=== PATIENT | male | born 1975 | race Caucasian/White ===

== ENCOUNTER 2021-05-03 01:12 | Inpatient (IN) ==
[2021-05-03 02:46] LABS: Bilirubin,Urine Negative (Negative); Blood,Urine Negative (Negative); Clarity,Urine Clear (Clear); Color,Urine Light-Yellow (Yellow); Glucose,Urine (UA) Normal (Normal); Ketones,Urine Negative (Negative); Leukocyte Esterase,Urine Negative (Negative); Nitrite,Urine Negative (Negative); PH,Urine 5.5 pH Units (5.0-8.0); Protein,Urine Negative (Neg-Trace); Specific Gravity,Urine 1.015 (1.010-1.025); Urobilinogen,Urine Normal (Normal)
[2021-05-03 02:49] LABS: Basophils % 0.4 %; Eosinophils # 0.1 K/mcL (0.0-0.6); Eosinophils % 0.8 %; Hematocrit 47.3 % (37.5-50.1); Hemoglobin 15.7 g/dL (12.9-16.9); Immature Granulocytes % 0.7 % (0-4); Lymphocytes # 2.9 K/mcL (0.6-4.6); Lymphocytes % 28.4 %; Mean Corpuscular HGB Conc 33.2 g/dL (31.6-35.5); Mean Corpuscular Hemoglobin 28.4 pg (28.0-33.3); Mean Corpuscular Volume 85.7 fL (83.0-100.0); Mean Platelet Volume 10.4 fL (9.4-12.4); Monocytes # 0.9 K/mcL (0.0-1.3); Monocytes % 8.9 %; Neutrophils # 6.1 K/mcL (1.6-8.9); Platelet Count 281 K/mcL (140-400); Red Blood Count 5.52 M/mcL (4.19-5.50); Red Cell Distribution Width 12.7 % (11.5-14.5); Segmented Neutrophils % 60.8 %; White Blood Count 10.1 K/mcL (4.3-11.1)
[2021-05-03 03:01] LABS: Amphetamine Screen,Urine Negative ng/mL (Cutoff=1000); Barbiturate Screen,Urine Negative ng/mL (Cutoff=200); Benzodiazepines Screen,Urine Negative ng/mL (Cutoff=200); Cannabinoid Screen,Urine Negative ng/mL (Cutoff = 50); Cocaine Screen,Urine Negative ng/mL (Cutoff= 300); Opiate Screen,Urine Negative ng/mL (Cutoff=300); Phencyclidine Screen,Urine Negative ng/mL (Cutoff=25)
[2021-05-03 03:03] LABS: Acetaminophen < 10 mcg/mL (10-20); BUN/Creatinine Ratio 18 (6-26); Blood Urea Nitrogen 17 mg/dL (6-20); Calcium 9.2 mg/dL (8.6-10.3); Carbon Dioxide 18 mEq/L (23-29); Chloride 107 mEq/L (98-107); Chol/HDL Ratio 6.8 (0-4.9); Cholesterol 246 mg/dL (< 200); Ethanol 16 mg/dL (Less than 10); Glucose 98 mg/dL (70-105); HDL Cholesterol 36 mg/dL (40-59); LDL Cholesterol,Calculated 145 mg/dL (< 100); Osmolality,Calculated 290 (280-300); Potassium 3.8 mEq/L (3.5-5.1); Salicylate < 2.5 mg/dL (15.0-30.0); Sodium 139 mEq/L (136-145); Triglycerides 323 mg/dL (< 150); eGFR For African Americans > 60 (> 60); eGFR For Non-African Americans > 60 (> 60)
[2021-05-03 06:30] LABS: Adenovirus Not Detected (Not Detect); Bordetella Pertussis Not Detected (Not Detect); Chlamydophila pneumoniae Not Detected (Not Detect); Coronavirus 229E Not Detected (Not Detect); Coronavirus HKU1 Not Detected (Not Detect); Coronavirus NL63 Not Detected (Not Detect); Coronavirus OC43 Not Detected (Not Detect); Human Metapneumovirus Not Detected (Not Detect); Human Rhinovirus/Enterovirus Not Detected (Not Detect); Influenza A Subtype 2009 H1 Not Detected (Not Detect); Influenza B Not Detected (Not Detect); Mycoplasma pneumoniae Not Detected (Not Detect); Parainfluenza Virus 1 Not Detected (Not Detect); Parainfluenza Virus 2 Not Detected (Not Detect); Parainfluenza Virus 3 Not Detected (Not Detect); Parainfluenza Virus 4 Not Detected (Not Detect); Respiratory Syncytial Virus Not Detected (Not Detect); SARS-CoV-2 Not Detected (Not Detect)
[2021-05-03] MEDS ORDERED: hydrOXYzine pamoate 25 MG CAPSULE PO PRN (06:37)
[2021-05-03] MEDS ORDERED: traZODone 50 MG TABLET PO PRN (06:37)
[2021-05-03] MEDS ORDERED: Nicotine 14 MG PATCH.TD24 TD SCH (09:00)
[2021-05-03] MEDS: Acetaminophen 325 MG TABLET PO PRN (18:04)
[2021-05-03] MEDS: Pregabalin 50 MG CAPSULE PO SCH (20:49)
[2021-05-03] MEDS: Mirtazapine 15 MG TABLET PO SCH (20:49)
[2021-05-03] MEDS ORDERED: Ibuprofen 800 MG TABLET PO PRN (22:07)
[2021-05-04] MEDS: Nicotine 21 MG PATCH.TD24 TD SCH (08:38)
[2021-05-04] MEDS: Pregabalin 50 MG CAPSULE PO SCH ×2 (08:38→21:02)
[2021-05-04] MEDS: Acetaminophen 325 MG TABLET PO PRN (13:15)
[2021-05-04] MEDS: Lithium Carbonate 300 MG CAPSULE PO SCH (21:02)
[2021-05-04] MEDS: Mirtazapine 15 MG TABLET PO SCH (21:02)
[2021-05-05] MEDS: Acetaminophen 325 MG TABLET PO PRN (05:13)
[2021-05-05] MEDS: Nicotine 21 MG PATCH.TD24 TD SCH (08:59)
[2021-05-05] MEDS: Lithium Carbonate 300 MG CAPSULE PO SCH (08:59)
[2021-05-05] MEDS: Pregabalin 50 MG CAPSULE PO SCH (08:59)
[2021-05-05 09:07] VITALS: BP 117/88
== END 2021-05-05 13:20 | disposition home or self-care (01) | DRG 885 ==
LOC: EMEROOARM 01:12 → SUATTDRO 06:36 → 1ANU 06:36
PROVIDERS: ADMIT Psychiatry & Neurology Psychiatry; ATTEND Psychiatry & Neurology Forensic Psychiatry